=== PATIENT | female | born 1980 | race Two or more races ===

== ENCOUNTER → 2024-06-14 | Outpatient (CLI) | payer BC, SELFPAY ==
--- NOTE | 2024-06-14 15:30 | XR_ITS ---
Examination: Screening digital mammography, bilateral Computer aided detection 3-D breast Tomosynthesis, bilateral Date and time of exam: June 14, 2024 1545 hrs. Compared to mammograms dating to June 02, 2020 Indication: Screening Technique: Nonmagnified MLO, CC views of the breasts to been obtained, reconstructed from 3-D Tomosynthesis images. R2 computer aided detection program utilized for evaluation of suspicious masses and/or abnormal calcifications. 3-D Tomosynthesis images obtained. Findings: Scattered areas of fibroglandular density Benign calcifications No interval suspicious masses Impression: BI-RADS category II: Benign Findings. Recommend 1 year follow-up mammogram.
== END | disposition home or self-care (01) ==
PROVIDERS: PCP Family Medicine; Referring Provider Specialist; Visit Provider Specialist
DX: Z12.31 Encounter for screening mammogram for malignant neoplasm of breast (principal); R92.323 Mammographic fibroglandular density, bilateral breasts; R92.1 Mammographic calcification found on diagnostic imaging of breast
CPT/HCPCS: 77063; 77067

== ENCOUNTER 2024-09-17 21:53 | Emergency (ER) | payer BC, SELFPAY ==
[2024-09-17 22:10] VITALS: BP 162/95; PULSE 65; RESP 18; TEMP 37.1; O2SAT 100
--- NOTE | 2024-09-17 22:17 | EDNOTE_ITS ---
ED Allergic Reaction RME/HPI General Chief complaint: Allergic Reaction Stated complaint: RASH AND ITCHING ALL OVER Time Seen by Provider: 09/17/24 21:59 Source: patient, RN notes reviewed and old records reviewed Arrival date/time: 09/17/24 21:53 Mode of arrival: ambulatory Limitations: no limitations RME / HPI RME / HPI narrative: 44yof presents to ED for generalized itchy rash that initiated yesterday. Patient thinks rash may be 2/2 the sushi she ate last night. Tolerated fish/sushi in past. No tongue/throat swelling, sob or n/v reported. 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 Previous Rx's ?Medication ?Instructions ?Recorded hydroxyzine HCl 25 mg tablet 25 mg PO QID PRN palpatat ion and 01/09/19 anxiuosness #20 tabs cyclobenzaprine 10 mg tablet 10 mg PO TID #14 tabs 10/20 diphenhydramine HCl 25 mg tablet 50 mg (2 x 25 mg) PO Q6H PRN 09/17/24 (Benadryl Allergy) allergic reaction #30 tabs famotidine 40 mg tablet (Pepcid) 40 mg PO QDAY 7 days #7 tabs 09/17/24 Allergies Allergy/AdvReac Type Severity Reaction Status Date / Time No Known Allergies Allergy Verified 04/06/21 08:36 Review of Systems Review of Systems Systems Reviewed: All systems reviewed, normal except as documented Constitutional Constitutional: Denies chills and Denies fever(s) ENT Ears, Nose, Mouth, and Throat: Denies throat swelling and Denies tongue swelling Cardiovascular Cardiovascular: Denies dyspnea Respiratory Respiratory: Denies dyspnea Gastrointestinal Gastrointestinal: Denies nausea and Denies vomiting Integumentary/Breasts Skin/Breast: Reports pruritus and Reports rash Allergic/Immunologic Allergic/Immunologic: Denies throat swelling and Denies tongue swelling Past Medical History Surgical History OTHER SURGICAL HX: gastric sleeve Social History SMOKING STATUS: Never smoker SUBSTANCE USE: does not use ALCOHOL: Never Past Medical History Comments PMH COMMENT: denies pmhx ED Exam General Limitations: Present no limitations General appearance: Present alert and in no apparent distress Head Head exam: Present atraumatic and normocephalic Eye Eye exam: Present normal appearance, PERRL and EOMI ENT ENT exam: Present normal exam, normal oropharynx and mucous membranes moist Chest Chest inspection: Present normal inspection and symmetric chest wall rise Respiratory Respiratory exam: Present normal lung sounds bilaterally; Absent respiratory distress, wheezes or stridor Cardiovascular Cardiovascular exam: Present regular rate and normal rhythm Extremities Exam Extremities exam: Present normal inspection and full ROM Neurological Exam Neurological exam: Present alert and oriented X3 Psychiatric Psychiatric exam: Present normal affect and normal mood Skin Skin exam: Present warm, dry, intact and rash (scattered generalized urticaria) Course Quality Measures none Orders Category Date Time Status DiphenhydrAMINE [Benadryl] Med 09/17/24 22:16 Discontinued 25 mg PO X1 ONE Famotidine [Pepcid] Med 09/17/24 22:16 Discontinued 40 mg PO X1 ONE predniSONE Med 09/17/24 22:16 Discontinued 60 mg PO X1 ONE Vital Signs Vital signs: Vital Signs Temperature 98.8 F 09/17/24 22:10 Pulse Rate 65 09/17/24 22:10 Respiratory Rate 18 09/17/24 22:10 Blood Pressure 162/95 H 09/17/24 22:10 Pulse Oximetry (%) 100 09/17/24 22:10 Oxygen Delivery Method Room Air 09/17/24 22:10 Allergic Reaction MDM Narrative MDM Narrative:: 44yof presents to ED for generalized itchy rash that initiated yesterday. Patient thinks rash may be 2/2 the sushi she ate last night. Tolerated fish/sushi in past. No tongue/throat swelling, sob or n/v reported. 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 Patient is well-appearing, vitals are stable. No evidence of airway compromise or respiratory distress. Will rx 1-week course of pepcid. Recommended po benadryl prn itching. Stable for dc, RTED precautions given. Patient data External records reviewed:: [facility] previous records (04/06/21 ED visit for low back strain) Clinical information provided by:: patient Social determinants that could affect healthcare access:: other (specify) (poor access to healthcare) Patient has the following chronic illnesses:: none How is presenting disease/condition affected by chronic disease/condition?: no chronic disease Evaluation data The following diagnostics were reviewed and interpreted by me:: other (specify) (none) Lab and/or radiology exams considered but not ordered:: none Interpretation Summary: na Medications / Prescriptions Medications or Prescriptions considered but not ordered:: no antibiotics recommended at this time Medication administrations:: Medication Administration History Discontinued Medications Diphenhydramine HCl (Diphenhydramine 25 Mg Capsule) 25 mg PO X1 ONE Stop: 09/17/24 22:17 Last Admin: 09/17/24 22:31 Dose: 25 mg Documented By: JESSICA Famotidine (Famotidine 20 Mg Tablet) 40 mg PO X1 ONE Stop: 09/17/24 22:17 Last Admin: 09/17/24 22:31 Dose: 40 mg Documented By: JESSICA Prednisone (Prednisone 20 Mg Tablet) 60 mg PO X1 ONE Stop: 09/17/24 22:17 Last Admin: 09/17/24 22:31 Dose: 60 mg Documented By: JESSICA above medications administered in ED Consultations Consultation(s) initiated? (list below): No Diagnosis Differential Diagnosis allergic reaction: anaphylaxis, allergic reaction, angioedema, contact dermatitis, adverse reaction to drug, viral enanthem and urticaria Most likely diagnosis given after review of the tests above:: urticaria Admission Indicated Admission indicated?: not indicated Admission Request Was there a request for admission?: No Disposition Plan Disposition Plan: Discharge Discharge Attestation Discharge Attestation: The patient and all family members were given an opportunity to ask questions and understood the discharge instructions. Discharge instructions specifically effects, indications for sooner follow up or return to the emergency department, and the expected course of current diagnosis. Patient condition: Stable Discharge Plan Plan Patient Disposition: HOME (Self Care) Patient condition on transfer: Stable Prescriptions/Referrals Prescriptions/Med Rec: New famotidine [Pepcid] 40 mg tablet 40 mg PO QDAY 7 Days Qty: 7 0RF diphenhydramine HCl [Benadryl Allergy] 25 mg tablet 50 mg PO Q6H PRN (Reason: allergic reaction) Qty: 30 0RF No Action hydroxyzine HCl 25 mg tablet 25 mg PO QID PRN (Reason: palpatation and anxiuosness) Qty: 20 0RF Rx Instructions: 1 or 2 cyclobenzaprine 10 mg tablet 10 mg PO TID Qty: 14 0RF Problem List Clinical Impression: Rash Patient/Caregiver Discharge Instructions Education Materials: ED Dermatitis Non Specific Rash Print Language: German Stand Alone Forms: Sachi Award Info., Patient Portal Info Letter PA/ORTHO TECH Supervising Physician PA/ORTHO TECH Supervising Physician: Zen
[2024-09-17] MEDS: DiphenhydrAMINE 25 MG CAPSULE PO (22:31)
[2024-09-17] MEDS: predniSONE 20 MG TABLET 60 MG PO (22:31)
[2024-09-17] MEDS: FAMOTIDINE 20 MG TABLET 40 MG PO (22:31)
== END 2024-09-17 22:34 | disposition home or self-care (01) ==
LOC: SERX 22:38
PROVIDERS: Emergency Provider Emergency Medicine; PCP Family Medicine
DX: R21 Rash and other nonspecific skin eruption (principal)
CPT/HCPCS: 99282; J7512; A9270